=== PATIENT | female | born 2000 | race Hispanic/Latino ===

== ENCOUNTER 2024-12-11 20:07 | Emergency (ER) | payer SELFPAY ==
[~2024-12-11] VITALS: Ht 172.7 cm; Wt 113.4 kg
[2024-12-11 20:08] VITALS: TEMP 98
[2024-12-11 20:32] LABS: BASOPHILS # (AUTO) 0.03 K/uL (0.00-0.20); BASOPHILS % (AUTO) 0.3 % (0.0-5.0); EOSINOPHILS # (AUTO) 0.33 K/uL (0.00-0.70); EOSINOPHILS % (AUTO) 2.8 % (0.0-8.0); HEMATOCRIT 38.8 % (36-48); IMMATURE GRANULOCYTE ABSOLUTE 0.06 K/uL (0-1); LYMPHOCYTES # (AUTO) 3.3 K/uL (1.0-4.8); LYMPHOCYTES % (AUTO) 28.1 % (21.0-51.0); MEAN CORPUSCULAR HEMOGLOBIN 26.1 pg (27.0-33.0); MEAN CORPUSCULAR HGB CONC 33.5 g/dL (32.0-36.0); MEAN CORPUSCULAR VOLUME 77.8 fL (79-99); MONOCYTES # (AUTO) 0.7 K/uL (0.1-1.0); MONOCYTES % (AUTO) 5.9 % (3.0-13.0); NEUTROPHILS # (AUTO) 7.3 K/uL (1.8-7.7); NEUTROPHILS % (AUTO) 62.4 % (40.0-77.0); PLATELET COUNT (AUTO) 301 K/uL (130-400); RED BLOOD CELL COUNT(AUTO) 4.99 MIL/uL (4.00-5.50); RED CELL DISTRIBUTION WIDTH 13.7 % (11.0-15.5); WHITE BLOOD COUNT (AUTO) 11.7 K/uL (4.8-10.8)
[2024-12-11] MEDS: 0.9%NACL 1000ML 1,000 ML IV SCH (20:32)
--- NOTE | 2024-12-11 20:37 | ERN ---
ED Note History of Present Illness Stated Complaint: HEART RACING Chief Complaint: Palpitations Time Seen by MD: 20:09 Time Seen by Midlevel: 20:09 Dictation: The patient is a 24-year-old female with history of diabetes currently not compliant with medication who presents to the emergency department with complaints of palpitations associated with dizziness and shortness of breath onset today. Patient reports that she has been monitoring her heart rate on her Apple watch and it has been in the 140s. Denies any chest pain, fevers, cough or upper respiratory symptoms. Patient denies any recent travel or use of medications at home. Currently denies any dizziness. Reports dizziness only when heart rate is really elevated. Allergies: Coded Allergies: No Known Allergies (Unverified Allergy, Unknown, 12/11/24) Past Medical History Past Medical History: Diabetes-Type II Surgical History: None LMP: Dec 07, 2024 RN Note Reviewed/Agreed w/PFSH: Yes Review of System Dictation Constitutional: Negative for fever,chills, and weight loss Eyes: Negative for injury, pain,redness, and discharge ENT: Negative for injury,pain or swelling Cardiovascular: Negative for chest pain and edema positive for palpitations Respiratory: Negative for , cough, and wheezing, positive for shortness of breath Abdomen/GI: Negative for abdominal pain, nausea, vomiting, diarrhea, and constipation Back: Negative for injury and pain : Negative for injury, bleeding and discharge MS/Extremity: Negative for injury and deformity Skin: Negative for rash, and discoloration Neuro: Negative for headache, weakness, numbness, tingling, and seizure positive for dizziness Psych: Negative for suicide ideation, homicidal ideation, and hallucinations Initial Vital Sign VS Vital Signs Date Time Temp Pulse Resp B/P (MAP) Pulse Ox O2 Delivery O2 Flow Rate FiO2 12/11/24 20:08 98.1 126 20 176/113 10 Room Air 12/11/24 20:41 0 21 Physical Exam Dictation Vital Signs reviewed General Appearance: Alert, oriented x 3, no acute distress, well developed, nourished. Head and Face: non-traumatic. Eyes: PERRL, pink conjunctivas, eyelid no trauma, anterior chamber with arcus senilis. Ears: Pinnas intact and no signs of trauma or erythema ear canals clear and no discharge TM no erythema Nose: No discharge, no bleeding. Oropharynx: Mouth normal, tongue pink. pharynx clear,no erythema, tonsils no exudates, no abscesses noted, mucous membrane moist Neck: Supple, non-tender, no thyromegaly, no masses, no JVD, no bruits Breast:Deferred Chest:No tenderness, no crepitus, no paradoxical movement, no retractions Lungs:Clear, well-ventilated, symmetric, no rales, no wheezing, no rhonchi, no stridor, good breath sounds bilaterally Heart: Regular rate, regular rhythm, no murmur, no gallops Vascular: no peripheral edema, Abdomen: Soft, positive bowel sounds, nondistended, no guarding, nontender, no rebound, no masses no hepatomegaly, no splenomegaly, no Campa's sign, no hernias. Rectal: Deferred Genital: Deferred Neurological: Normal speech, motor function intact, sensory function intact , upper extremities equal in strength, lower extremities equal in strength, no facial droop Musculoskeletal: Neck nontender, full range of motion, back nontender, full range of motion, Extremities: nontender, full range of motion Skin: Color pink, dry, no turgor, no rash, no lacerations, no abrasions, no contusions. Lymphatic: Deferred Results (Laboratory/Radiology) Laboratory/Radiology Laboratory Tests Test 12/11/24 20:25 12/11/24 20:58 White Blood Count 11.7 K/uL (4.8-10.8) H Red Blood Count 4.99 MIL/uL (4.00-5.50) Hemoglobin 13.0 g/dL (12.0-16.0) Hematocrit 38.8 % (36-48) Mean Corpuscular Volume 77.8 fL (79-99) L Mean Corpuscular Hemoglobin 26.1 pg (27.0-33.0) L Mean Corpuscular Hemoglobin Concent 33.5 g/dL (32.0-36.0) Red Cell Distribution Width 13.7 % (11.0-15.5) Platelet Count 301 K/uL (130-400) Mean Platelet Volume 12.4 fL (7.5-10.5) H Immature Granulocyte % (Auto) 0.5 % (0-1) Neutrophils (%) (Auto) 62.4 % (40.0-77.0) Lymphocytes (%) (Auto) 28.1 % (21.0-51.0) Monocytes (%) (Auto) 5.9 % (3.0-13.0) Eosinophils (%) (Auto) 2.8 % (0.0-8.0) Basophils (%) (Auto) 0.3 % (0.0-5.0) Neutrophils # (Auto) 7.3 K/uL (1.8-7.7) Lymphocytes # (Auto) 3.3 K/uL (1.0-4.8) Monocytes # (Auto) 0.7 K/uL (0.1-1.0) Eosinophils # (Auto) 0.33 K/uL (0.00-0.70) Basophils # (Auto) 0.03 K/uL (0.00-0.20) Absolute Immature Granulocyte (auto 0.06 K/uL (0-1) Nucleated Red Blood Cells 0.0 % (0.0-0.19) Sodium Level 134 mmol/L (136-145) L Potassium Level 3.7 mmol/L (3.5-5.1) Chloride Level 99 mmol/L (101-111) L Carbon Dioxide Level 24 mmol/L (21-32) Blood Urea Nitrogen 10 mg/dL (7-18) Creatinine 0.7 mg/dL (0.5-1.0) Glomerular Filtration Rate Calc 122 mL/min (>90) Random Glucose 301 mg/dL (70-105) H Total Calcium 9.0 mg/dL (8.5-10.1) Magnesium Level 1.20 mg/dL (1.80-2.40) L Total Creatine Kinase 65 U/L (21-232) Troponin I High Sensitivity 5.1 ng/L (4-50) B-Type Natriuretic Peptide 9 pg/mL (0-100) Serum Test, Qualitative NEGATIVE (NEGATIVE) Urine Color COLORLESS (YELLOW) Urine Appearance CLEAR (CLEAR) Urine pH 5.5 (5.0-8.0) Urine Specific [place] 1.004 (1.001-1.031) Urine Protein NEGATIVE mg/dL (NEGATIVE) Urine Glucose (UA) >=1000 mg/dL (NEGATIVE) H Urine Ketones NEGATIVE mg/dL (NEGATIVE) Urine Occult Blood NEGATIVE (NEGATIVE) Urine Nitrate NEGATIVE (NEGATIVE) Urine Bilirubin NEGATIVE mg/dL (NEGATIVE) Urine Urobilinogen 0.2 mg/dL (0.2-1.0) Urine Leukocyte Esterase NEGATIVE [place]/uL Urine RBC 0-1 /HPF (0-1) Urine WBC 0-1 /HPF (0-1) Urine Squamous Epithelial Cells RARE /HPF (0-2) Urine Bacteria None /HPF (None Seen) Urine Opiates Screen NEGATIVE (NEGATIVE) Urine Barbiturates Screen NEGATIVE (NEGATIVE) Urine Phencyclidine Screen NEGATIVE (NEGATIVE) Urine Amphetamines Screen NEGATIVE (NEGATIVE) Urine Benzodiazepines Screen NEGATIVE (NEGATIVE) Urine Cocaine Screen NEGATIVE (NEGATIVE) Urine Marijuana (THC) Screen NEGATIVE (NEGATIVE) REASON: sob ORDERING PHYSICIAN: MINISTERIO MUELLER [employer] PROCEDURE: CXR1VW - CHEST 1VW CHEST 1VW HISTORY: Shortness of breath COMPARISON: None FINDINGS: A frontal projection of the chest was obtained. No acute pulmonary infiltrates is seen. The heart is borderline enlarged. Prominent interstitial markings are seen. No evidence of aortic calcification is seen. IMPRESSION: 1. No acute pulmonary infiltrate is seen. Labs Reviewed?: Yes EKG: (+) rhythm (Sinus tachycardia) EKG Comment: Date:12/11/2024 Time:2009 Ventricular rate:121 MD interval:139 QRS duration:100 QT/QTc:346 EKG interpretation: Sinus tachycardia Reviewed by ED Attending notes STEMI ED Course ED Course Orders Procedure Category Date Status Time 12 Lead Ekg Tracing- EKG 12/11/24 Logged Technical 20:15 Cbc With Differential LAB 12/11/24 Complete 20:16 B-Type Natriuretic LAB 12/11/24 Complete Peptide 20:16 Chest 1vw RAD 12/11/24 Resulted 20:16 0.9%Nacl 1000ml (Ns PHA 12/11/24 In Process 1000ml) 20:30 Magnesium LAB 12/11/24 Complete 20:16 Urinalysis Profile LAB 12/11/24 Complete 20:16 Basic Metabolic Panel LAB 12/11/24 Complete 20:16 Drug Screen Urine LAB 12/11/24 Complete 20:16 Testing, LAB 12/11/24 Complete Serum Hcg 20:16 Cardiac Panel LAB 12/11/24 Complete 20:25 Magnesium 2gm Premix PHA 12/11/24 In Process 50ml (Magnesium 2gm 21:30 0.9%Nacl 1000ml (Ns PHA 12/11/24 Complete 1000ml) 22:00 Current Medications Medications (Trade) Dose Ordered Sig/Maria Victoria Route PRN Reason Start Time Stop Time Status Last Admin Dose Admin Magnesium Sulfate 50 ml @ 0 mls/hr PROTOCOL IV 12/11/24 21:30 01/10/25 21:29 12/11/24 21:58 Sodium Chloride 1,000 ml @ 0 mls/hr ONCE IV 12/11/24 20:30 12/12/24 20:29 12/11/24 20:32 Sodium Chloride 1,000 ml @ 0 mls/hr ONCE ONCE IV 12/11/24 22:00 12/11/24 22:01 DC 12/11/24 21:57 Vital Signs Date Time Temp Pulse Resp B/P (MAP) Pulse Ox O2 Delivery O2 Flow Rate FiO2 12/11/24 22:00 105 14 137/82 99 Room Air* 0 21 12/11/24 20:41 116 14 149/98 99 Room Air* 0 21 12/11/24 20:08 98.1 126 20 176/113 10 Room Air Medical Decision Making MDM The patient is a 24-year-old female with history of diabetes currently not compliant with medication who presents to the emergency department with complaints of palpitations associated with dizziness and shortness of breath onset today. Patient reports that she has been monitoring her heart rate on her Apple watch and it has been in the 140s. Denies any chest pain, fevers, cough or upper respiratory symptoms. Patient denies any recent travel or use of medications at home. Currently denies any dizziness. Reports dizziness only when heart rate is really elevated. See showed mild leukocytosis, no anemia, chemistry showed mild hyponatremia, hypochloremia, blood glucose of 301, no DKA. Patient received 2 L of IV fluids. Magnesium at 1.2. Was replaced in ER. Negative BNP, negative troponin, urinalysis unremarkable, toxicology negative chest x-ray showed no acute pathology. Patient with a Wells score low risk for PE. Patient with no chest pain, no lower extremity edema, no recent travel or recent surgery. On physical exam patient with a nontender abdomen. Neurologically intact. Heart rate drastically improved after IV fluids. Now in the 100 Patient reports she feels better. No longer having dizziness. Patient instructed to follow up with PCP for diabetes management. Differential diagnosis: Uncontrolled diabetes, dehydration, electrolyte imbalance, tachyarrhythmia, ACS Need for hospitalization: Patient does not meet criteria for hospitalization. There are no social concerns with this patient. DX & DISP Disposition: Discharge Departure Impression: Primary Impression: Uncontrolled diabetes mellitus with hyperglycemia Additional Impressions: Dehydration, Palpitations, Hypomagnesemia Condition: Stable Additional Instructions: Please follow up with your primary doctor in 1-2 days. You need to follow up on your diabetes management. It is very important that you control your blood sugars to avoid any further complications. If symptoms worsen please return to ER. FOLLOW-UP WITH PRIMARY CARE PROVIDER IN 1 TO 2 DAYS. TAKE MEDICATIONS DIRECTED HERE IN THE EMERGENCY ROOM. OKAY TO CONTINUE HOME MEDICATIONS UNLESS OTHERWISE DISCUSSED DURING YOUR VISIT IN THE EMERGENCY ROOM TODAY. RETURN TO YOUR NEAREST EMERGENCY ROOM IF SYMPTOMS WORSEN OR IF THERE IS NO IMPROVEMENT. CALL 911 IF YOU NEED IMMEDIATE ASSISTANCE. TAKE TYLENOL OR MOTRIN [id number] NEEDED AND IF NO CONTRAINDICATIONS ARE PRESENT. INCREASE ORAL HYDRATION. A WOUND CULTURE OR URINE CULTURE WAS ORDERED HERE IN THE EMERGENCY ROOM DEPARTMENT PLEASE FOLLOW-UP WITH PRIMARY CARE PROVIDER AND ADVISE THEM TO GET REPEAT PORTS FROM OUR FACILITY. IF YOU HAD ANY CAMILLE WRAP/SPLINTS THAT WERE APPLIED HERE, PLEASE DO NOT REMOVE THEM UNTIL YOU SEE YOUR PRIMARY CARE OR SPECIALTY. Referrals: SELF,REFERRAL (PCP) Time of Disposition: 23:08 I have reviewed the case, and I agree with, Diagnosis and Plan MINISTERIO MUELLER December 11, 2024 20:37
[2024-12-11 20:41] LABS: CREATININE 0.7 mg/dL (0.5-1.0); POTASSIUM 3.7 mmol/L (3.5-5.1)
[2024-12-11 20:49] LABS: MAGNESIUM 1.2 mg/dL (1.80-2.40)
[2024-12-11 20:56] LABS: B-TYPE NATRIURETIC PEPTIDE 9 pg/mL (0-100)
--- NOTE | 2024-12-11 20:58 | HMCIMG ---
CHEST 1VW HISTORY: Shortness of breath COMPARISON: None FINDINGS: A frontal projection of the chest was obtained. No acute pulmonary infiltrates is seen. The heart is borderline enlarged. Prominent interstitial markings are seen. No evidence of aortic calcification is seen. IMPRESSION: 1. No acute pulmonary infiltrate is seen.
[2024-12-11 21:25] LABS: AMPHET/METH SCREEN,URINE NEGATIVE (NEGATIVE); BARBITURATE SCREEN, URINE NEGATIVE (NEGATIVE); BENZODIAZEPINES SCREEN,URINE NEGATIVE (NEGATIVE); CANNABINOID SCREEN,URINE NEGATIVE (NEGATIVE); COCAINE SCREEN,URINE NEGATIVE (NEGATIVE); OPIATE SCREEN,URINE NEGATIVE (NEGATIVE); PHENCYCLIDINE SCREEN,URINE NEGATIVE (NEGATIVE)
[2024-12-11 21:34] LABS: APPEARANCE,URINE CLEAR (CLEAR); BILIRUBIN,URINE NEGATIVE (NEGATIVE); COLOR,URINE COLORLESS (YELLOW); GLUCOSE, URINE (UA) >=1000 mg/dL (NEGATIVE); KETONES,URINE NEGATIVE (NEGATIVE); LEUKOCYTE ESTERASE ,URINE NEGATIVE Leu/uL (NEGATIVE); NITRATE,URINE NEGATIVE (NEGATIVE); OCCULT BLOOD,URINE NEGATIVE (NEGATIVE); PH,URINE 5.5 (5.0-8.0); PROTEIN,URINE NEGATIVE (NEGATIVE); UROBILINOGEN,URINE 0.2 mg/dL (0.2-1.0)
[2024-12-11 21:38] LABS: ADD UA MICROSCOPIC YES
[2024-12-11 21:39] LABS: MUCUS,URINE RARE LPF (None Seen); RBC,URINE 0-1 /HPF (0-1); SQUAMOUS EPITHELIAL CELL,UR RARE /HPF (0-2); WBC,URINE 0-1 /HPF (0-1)
[2024-12-11] MEDS: 0.9%NACL 1000ML 1,000 ML IV ONE (21:57)
[2024-12-11] MEDS: MAGNESIUM 2GM PREMIX 50ML 50 ML IV SCH (21:58)
[2024-12-11 23:35] VITALS: BP 146/91; PULSE 99; RESP 14; O2SAT 99
--- NOTE | 2024-12-12 07:42 | EKG ---
[facility] Test Date: 2024-12-11 Test Time: 20:10:37 Pat Name: MADISON TYLER Department: [facility] Room: Gender: F Bull Bucker: [id number] : 2000 Requested By: NADIRA ROBERTS Order Number: [id number] Reading MD: Damon Muniz Measurements Intervals [place] Rate: 121 P: 39 IA: 139 QRS: 1 QRSD: 100 T: 0 QT: 346 QTc: 489 Interpretive Statements Sinus tachycardia Atrial premature complex Low voltage, precordial leads No previous ECG available for comparison Electronically Signed On 12-12-2024 12:28:51 CDT by Damon Muniz Please click the below link to view image of tracing.
== END 2024-12-12 00:01 | disposition home or self-care (01) ==
LOC: EDH 20:07
DX: E11.65 Type 2 diabetes mellitus with hyperglycemia (principal); E86.0 Dehydration; R00.2 Palpitations; E83.42 Hypomagnesemia; Z79.899 Other long term (current) drug therapy
CPT/HCPCS: 99285; 96365; 71045; 96366; 96361; 82550; 83735; 84484; 80048; 83880; 80305; 84703; 85025; 36415; 93005; 81001; J3475; J7030 ×2